=== PATIENT | female | born 1960 | race Two or more races ===

== ENCOUNTER 2025-03-26 12:03 | Emergency (ER) | payer MEDICAID, SELFPAY ==
[2025-03-26 12:05] VITALS: BP 137/75; PULSE 81; RESP 18; TEMP 37.2; O2SAT 97
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
--- NOTE | 2025-03-26 12:11 | XR_ITS ---
Examination: Tibia-Fibula, right , 2 views Technique: Tibia-fibula AP lateral 2 views Date and time of exam: March 26, 2025 1240 hours INDICATIONS: Injury to the lower leg today, lower leg pain. FINDINGS: Old healed fractures proximal tibia proximal fibula No acute fracture IMPRESSION: No acute fracture
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
[2025-03-26 12:18] VITALS: BMI 16.1
[2025-03-26 12:42] LABS: Basophils % (Auto) 1 % (0-2.5); Eosinophils # (Auto) 0.1 Thou/mm3 (0.0-0.5); Eosinophils % (Auto) 1 % (0-10); Hematocrit 34.5 % (36.0-46.0); Hemoglobin 11.4 g/dL (12.0-16.0); Immature Granulocytes % (Auto) 1 % (0-0); Immature Granulocytes Auto 0.04 Thou/mm3 (0.00-0.00); Lymphocytes # (Auto) 1.2 Thou/mm3 (1.0-4.8); Lymphocytes % (Auto) 14 % (10-50); Mean Corpuscular Hemoglobin 27.7 pg (25.0-35.0); Mean Corpuscular Volume 84 fL (80-100); Monocytes # (Auto) 0.3 Thou/mm3 (0.0-0.8); Monocytes % (Auto) 4 % (0-12); Neutrophils # (Auto) 6.9 Thou/mm3 (1.8-7.7); Neutrophils % (Auto) 81 % (37-80); Nucleated Red Blood Cell % 0 /100 WBC (0); Platelet Count 281 Thou/mm3 (140-440); RDW Standard Deviation 43.3 fL (36.4-46.3); Red Blood Count 4.11 Miln/mm3 (4.00-5.20); White Blood Count 8.5 Thou/mm3 (3.6-11.0)
[2025-03-26 13:04] LABS: Alanine Aminotransferase 13 U/L (10-49); Albumin, Serum 3.8 gm/dL (3.4-4.8); Alkaline Phosphatase 103 U/L (46-116); Anion Gap 11 (7-16); Aspartate Amino Transferase 24 U/L (0-34); BUN/Creatinine Ratio 13 Ratio (12-20); Bilirubin,Total 0.3 mg/dL (0.3-1.2); Blood Urea Nitrogen 10 mg/dL (9-23); C-Reactive Protein 0.7 mg/dL (0.0-0.9); Calcium 8.7 mg/dL (8.3-10.6); Calcium (Corrected) 8.9 mg/dL (8.5-10.1); Carbon Dioxide 23.5 mMol/L (20.0-31.0); Chloride 107 mMol/L (98-107); Creatinine (Component) 0.8 mg/dL (0.6-1.3); Estimated Creatinine Clearance 47.8 mL/min (>60); Globulin 3.7 gm/dL (2.3-3.5); Glucose 101 mg/dL (74-106); Osmolality,Calculated 280 (275-295); Potassium 3.7 mMol/L (3.4-5.1); Sodium 141 mMol/L (136-145); Total Protein 7.5 gm/dL (5.7-8.2); eGFR > 60 See Note
[2025-03-26] MEDS: DOXYCYCLINE 100 MG TABLET PO (13:15)
[2025-03-26] MEDS: DIPHTH,PERTUSS(ACELL),TET VAC 0.5 ML SYR- ADULT IMi (13:16)
== END 2025-03-26 13:45 ==
PROVIDERS: Physician Assistant Medical; Emergency Provider Family Medicine
DX: Z02.89 Encounter for other administrative examinations (principal); S60.811A Abrasion of right wrist, initial encounter; L03.115 Cellulitis of right lower limb; L02.415 Cutaneous abscess of right lower limb
CPT/HCPCS: 36415; 73562; 73590; 80053; 85025; 86140; 87070; 87075; 87077; 87186; 87205; 90715; 99281; A9270